=== PATIENT | female | born 1975 | race African-American/Black ===

== ENCOUNTER 2019-10-02 01:27 | Emergency (ER) | payer BC ==
[2019-10-02 01:45] VITALS: BP 125/82; PULSE 94; TEMP 98.1; BMI 24.6
[2019-10-02] MEDS ORDERED: FLUORESCEIN NA 1 EA STRIP OD ONE (02:07)
[2019-10-02] MEDS ORDERED: TETRACAINE 0.5% HCL 0.6ML DROPPER.BOTTLE OD ONE (02:07)
[2019-10-02] MEDS ORDERED: TETRACAINE 0.5% OPHTH SOLN 2 ML BOTTLE ONE (02:10)
[2019-10-02] MEDS ORDERED: FLUORESCEIN NA 1 EA STRIP ONE ×2 (02:10→02:23)
[2019-10-02] MEDS ORDERED: GENTAMICIN SULFATE 0.3% OPHTHALMIC (EYE DROPS) 5ML BOTTLE OS ONE (02:30)
--- NOTE | 2019-10-02 02:31 | PDOC ---
Attending Attestation - Resident Resident Name: Shelia Rawls - ED Attending Attestation I have performed the following: I have examined & evaluated the patient, The case was reviewed & discussed with the resident, I agree w/resident's findings & plan - HPI HPI: 10/02/19 04:04 FB sensation in the left eye - Physicial Exam PE: 10/02/19 04:04 Pt has fluorescine exam that shows a FB around 6 o'clock on the left cornea. Vision as reported on the resident exam - Medical Decision Making 10/02/19 04:05 Home with gentamicin drops QID x 5 days; follow with ophtho 10/02/19 04:06 FB was removed with a tuberculin needle
--- NOTE | 2019-10-02 02:35 | PDOC ---
History of Present Illness <Ashley Ayon - Last Filed: 10/02/19 02:47> - General History Source: Patient - History of Present Illness Initial Comments: 10/02/19 02:30 44 yo F presenting for foreign body sensation in L eye that has been since Thursday night around 8pm. pt states she does not know what the foreign body is. she feels it moving in her eye and states the sensation is worse when she closes her eyes. pt states that her vision is not affected. denies blurred vision. <Shelia Rawls - Last Filed: 10/02/19 03:10> - General Chief Complaint: Foreign Body (FB) Stated Complaint: EYE PROBLEM Time Seen by Provider: 10/02/19 02:12 Past History <Ashley Ayon - Last Filed: 10/02/19 02:47> - Past Medical History COPD: No - Immunization History Immunization Up to Date: Yes - Psycho Social/Smoking Cessation Hx Smoking History: Never smoked Have you smoked in the past 12 months: No Hx Alcohol Use: No Drug/Substance Use Hx: No Substance Use Type: None <Shelia Rawls - Last Filed: 10/02/19 03:10> - Past Medical History Allergies/Adverse Reactions: Allergies Allergy/AdvReac Type Severity Reaction Status Date / Time No Known Drug Allergies Allergy Verified 10/02/19 01:45 shrimp Allergy Verified 10/02/19 01:45 Home Medications: Ambulatory Orders NK [No Known Home Medication] 10/02/19 Review of Systems - Review of Systems HEENTM: Yes: Eye Pain, Tearing. No: Blurred Vision, Recent change in vision, Double Vision <Shelia Rawls - Last Filed: 10/02/19 03:10> *Physical Exam - Vital Signs Last Vital Signs Temp Pulse Resp BP Pulse Ox 98.1 F 94 H 20 125/82 100 10/02/19 01:40 10/02/19 01:40 10/02/19 01:40 10/02/19 01:40 10/02/19 01:40 <Ashley Ayon - Last Filed: 10/02/19 02:47> - Vital Signs Last Vital Signs Temp Pulse Resp BP Pulse Ox 98.1 F 94 H 20 125/82 100 10/02/19 01:40 10/02/19 01:40 10/02/19 01:40 10/02/19 01:40 10/02/19 01:40 - Physical Exam General Appearance: Yes: Nourished, Appropriately Dressed. No: Apparent Distress HEENT: positive: EOMI, DANNY, Normal Voice, Other (L eyelid swelling, foreign object 6oclock L eye). negative: Photophobia Respiratory/Chest: positive: Lungs Clear, Normal Breath Sounds. negative: Respiratory Distress, Accessory Muscle Use Cardiovascular: positive: Regular Rhythm, Regular Rate, S1, S2 Musculoskeletal: positive: Normal Inspection Extremity: positive: Normal Capillary Refill, Normal Inspection Integumentary: positive: Normal Color, Dry, Warm Neurologic: positive: Fully Oriented <Shelia Rawls - Last Filed: 10/02/19 03:10> ED Treatment Course - Medications Given in the ED: ED Medications Discontinued Medications Generic Name Dose Route Start Last Admin Trade Name Freq PRN Reason Stop Dose Admin Fluorescein Sodium 1 ea 10/02/19 02:07 10/02/19 02:24 Fluorets - OD 10/02/19 02:08 1 ea ONCE ONE Administration Gentamicin Sulfate 1 drop 10/02/19 02:30 10/02/19 02:40 Gentamicin 0.3% Eye Drops - OS 10/02/19 02:31 1 drop ONCE ONE Administration Tetracaine HCl 1 drop 10/02/19 02:07 10/02/19 02:24 Tetravisc 0.5% Eye Drops - OD 10/02/19 02:08 1 drop ONCE ONE Administration <Ashley Ayon - Last Filed: 10/02/19 02:47> - Medications Given in the ED: ED Medications Discontinued Medications Generic Name Dose Route Start Last Admin Trade Name Freq PRN Reason Stop Dose Admin Fluorescein Sodium 1 ea 10/02/19 02:07 10/02/19 02:24 Fluorets - OD 10/02/19 02:08 1 ea ONCE ONE Administration Tetracaine HCl 1 drop 10/02/19 02:07 10/02/19 02:24 Tetravisc 0.5% Eye Drops - OD 10/02/19 02:08 1 drop ONCE ONE Administration <Shelia Rawls - Last Filed: 10/02/19 03:10> Medical Decision Making - Medical Decision Making 10/02/19 02:36 44 yo F presenting for foreign body in L eye 10/02/19 02:37 -exam w/ fluorescein and shows foreign body- removed w/ qtip -will reassess -dc gentamycin ointment. should f/u w/ ophthalmology 10/02/19 02:38 10/02/19 03:08 vision testing assessed with glasses. R eye 20/20, L eye 20/15. pt states her eye is feeling better <Shelia Rawls - Last Filed: 10/02/19 03:10> Discharge - Discharge Information Problems reviewed: Yes <Ashley Ayon - Last Filed: 10/02/19 02:47> <Shelia Rawls - Last Filed: 10/02/19 03:10> - Discharge Information Clinical Impression/Diagnosis: Eye foreign body Condition: Improved Disposition: HOME - Follow up/Referral Referrals: Mack Hudson MD [Non Staff, Medical] - Taco Hudson MD [Non Staff, Medical] - Janiya Álvarez MD [Staff Physician] - - Patient Discharge Instructions Patient Printed Discharge Instructions: How to Get a Foreign Body Out of Your Eye, DI for Foreign Body in the Eye - Post Discharge Activity Work/Back to School Note: Back to Work
[2019-10-02] MEDS ORDERED: GENTAMICIN SULFATE 0.3% OPHTHALMIC (EYE DROPS) 5ML BOTTLE ONE (02:37)
== END 2019-10-02 03:01 | disposition home or self-care (01) ==
LOC: JER 01:27
PROC: 08C9XZZ Extirpation of Matter from Left Cornea, External Approach (ICD-10-PCS; principal; 2019-10-02)
PROC: 4A07X0Z Measurement of Visual Acuity, External Approach (ICD-10-PCS; 2019-10-02)
DX: T15.02XA Foreign body in cornea, left eye, initial encounter (principal); Z91.013 Allergy to seafood; X58.XXXA Exposure to other specified factors, initial encounter; Y93.89 Activity, other specified; Y92.038 Other place in apartment as the place of occurrence of the external cause; Y99.8 Other external cause status
CPT/HCPCS: 99281-25

== ENCOUNTER 2023-12-17 18:56 | Inpatient (IN) | payer BC ==
[2023-12-17] MEDS ORDERED: ACETAMINOPHEN INJECTION 100 ML IVPB ONE (20:31)
[2023-12-17] MEDS: ACETAMINOPHEN 1000 MG/100 ML BAG IVPB ONE (20:37)
[2023-12-17] MEDS: LACTATED RINGERS SOLUTION 1000 ML INFUS.BAG IV ONE (20:38)
[2023-12-17 20:57] LABS: BASO % 0.4 % (0-2.0); EOS % 0.7 % (0-4.5); HEMATOCRIT 32.5 % (32.4-45.2); HEMOGLOBIN 10.8 GM/dL (10.7-15.3); LYMPH % 20.8 % (8-40); MCH 25.6 pg (25.7-33.7); MCHC 33.3 g/dl (32.0-36.0); MEAN CELL VOLUME 77.1 fl (80-96); MEAN PLT VOLUME 7.7 fl (7.5-11.1); MONO % 7.3 % (3.8-10.2); NEUT % 70.8 % (42.8-82.8); PLATELET COUNT 270 10^3/uL (134-434); RBC 4.22 M/mm3 (3.60-5.2); RDW 13.3 % (11.6-15.6)
[2023-12-17 20:58] LABS: POTASSIUM 3.5 mmol/L (3.5-5.1)
[2023-12-17 21:00] LABS: CALCIUM 8.1 mg/dL (8.5-10.1)
[2023-12-17 21:01] LABS: ALBUMIN 2.2 g/dl (3.4-5.0); MAGNESIUM 1.8 mg/dL (1.8-2.4)
[2023-12-17 21:01] LABS: HCG,QUALITATIVE URINE Negative
[2023-12-17 21:02] LABS: EPI CELLS 13 /uL (0-25.1); HYALINE CASTS 0 /uL (0-3.1); URINE APPEARANCE CLEAR; URINE BACTERIA 531 /uL (0-1359); URINE BILIRUBIN NEGATIVE (NEGATIVE); URINE COLOR YELLOW; URINE GLUCOSE (UA) NEGATIVE (NEGATIVE); URINE KETONE NEGATIVE (NEGATIVE); URINE LEUK ESTERASE NEGATIVE (NEGATIVE); URINE NITRITE NEGATIVE (NEGATIVE); URINE PROTEIN 4+ (NEGATIVE); URINE RBC 28 /uL (0-23.9); URINE UROBILINOGEN 0.2 mg/dL (0.2-1.0); URINE WBC 17 /uL (0-25.8)
[2023-12-17 21:03] LABS: INR 1.06 (0.83-1.09); PROTHROMBIN TIME (PATIENT) 12.3 SEC (9.7-13.0)
[2023-12-17 21:04] LABS: CREATININE 0.6 mg/dL (0.55-1.3)
[2023-12-17 21:06] LABS: ACTIVATED PTT 28.1 SECONDS (25.2-36.5); BILIRUBIN,TOTAL 0.2 mg/dL (0.2-1); TOT PROT 6.5 g/dl (6.4-8.2)
[2023-12-17] MEDS ORDERED: CEFTRIAXONE 1 GM/50 ML BAG ONE (22:39)
[2023-12-17] MEDS: CEFTRIAXONE 1,000 MG in DEXTROSE 5%-WATER - 50 ML IVPB ONE (22:45)
[2023-12-17] MEDS ORDERED: HEPARIN NA (PORCINE) 5,000 UNITS/ML 1ML VIAL IVPUSH PRN (22:50)
[2023-12-18] MEDS ORDERED: HEPARIN NA (PORCINE) 5,000 UNITS/ML 1ML VIAL ONE (00:02)
[2023-12-18] MEDS: HEPARIN NA (PORCINE) 5,000 UNITS/ML 1ML VIAL IVPUSH ONE (00:11)
[2023-12-18] MEDS ORDERED: HEPARIN INFUSION - 25,000 UNITS/500 ML INFUS.BAG IVPB ONE (00:12)
[2023-12-18] MEDS: HEPARIN INFUSION - 25,000 UNITS/500 ML INFUS.BAG IVPB SCH (00:17)
[2023-12-18] MEDS: SODIUM CHLORIDE 1,000 ML IV SCH (02:10)
[2023-12-18 07:16] LABS: BASO % 0.6 % (0-2.0); EOS % 0.6 % (0-4.5); LYMPH % 23.7 % (8-40); MONO % 6.8 % (3.8-10.2); NEUT % 68.3 % (42.8-82.8)
[2023-12-18] MEDS ORDERED: ACETAMINOPHEN 325 MG TABLET (FP) ONE ×2 (07:22→17:36)
[2023-12-18] MEDS: ACETAMINOPHEN 325 MG TABLET (FP) PO PRN (07:26)
[2023-12-18 07:39] LABS: CALCIUM 8.2 mg/dL (8.5-10.1)
[2023-12-18 07:40] LABS: ALBUMIN 2.1 g/dl (3.4-5.0); BLOOD UREA NITROGEN 4.9 mg/dL (7-18); CHOLESTEROL 204 mg/dL (50-200); MAGNESIUM 1.7 mg/dL (1.8-2.4)
[2023-12-18 07:41] LABS: LDL CHOLESTEROL (ONLY SJRH) 120 mg/dL (5-100)
[2023-12-18 07:43] LABS: CREATININE 0.5 mg/dL (0.55-1.3); HDL CHOLESTEROL 69 mg/dL (40-60); PHOSPHOROUS 3.1 mg/dL (2.5-4.9)
[2023-12-18 07:44] LABS: BILIRUBIN,TOTAL 0.2 mg/dL (0.2-1)
[2023-12-18 09:25] LABS: HEMATOCRIT 32.8 % (32.4-45.2); HEMOGLOBIN 10.9 GM/dL (10.7-15.3); MEAN CELL VOLUME 77.4 fl (80-96); RBC 4.24 M/mm3 (3.60-5.2); WHITE BLOOD COUNT 6.9 K/mm3 (4.0-10.0)
[2023-12-18 09:26] LABS: MCH 25.6 pg (25.7-33.7); MEAN PLT VOLUME 8.3 fl (7.5-11.1); PLATELET COUNT 262 10^3/uL (134-434); RDW 13.4 % (11.6-15.6)
[2023-12-18] MEDS ORDERED: POLYETHYLENE GLYCOL (HEALTHYLAX) 3350 17 GM PACKET ONE (16:12)
[2023-12-18] MEDS: POLYETHYLENE GLYCOL (HEALTHYLAX) 3350 17 GM PACKET PO SCH (16:24)
[2023-12-18 17:32] LABS: EPI CELLS 4 /uL (0-25.1); HYALINE CASTS 0 /uL (0-3.1); URINE APPEARANCE CLEAR; URINE BACTERIA 51 /uL (0-1359); URINE BILIRUBIN NEGATIVE (NEGATIVE); URINE COLOR YELLOW; URINE GLUCOSE (UA) NEGATIVE (NEGATIVE); URINE KETONE NEGATIVE (NEGATIVE); URINE LEUK ESTERASE NEGATIVE (NEGATIVE); URINE NITRITE NEGATIVE (NEGATIVE); URINE PROTEIN 3+ (NEGATIVE); URINE RBC 16 /uL (0-23.9); URINE WBC 3 /uL (0-25.8)
[2023-12-18] MEDS ORDERED: MAGNESIUM SULFATE IN WATER 2 GM/50 ML IVPB IVPB ONE ×2 (17:36→17:57)
[2023-12-18] MEDS: MAGNESIUM SULF 50% (8.12 MEQ/2 ML-1 GM VIAL) IVPB ONE (17:42)
[2023-12-18] MEDS ORDERED: POTASSIUM CHLORIDE ORAL LIQUID 20 MEQ/15 ML ONE (18:28)
[2023-12-18] MEDS ORDERED: MELATONIN 5 MG TABLETS PO PRN (18:29)
[2023-12-18] MEDS: POTASSIUM CHLORIDE ORAL LIQUID 20 MEQ/15 ML PO ONE (18:36)
[2023-12-18] MEDS: ENOXAPARIN NA (PORCINE) 80 MG/0.8 ML DISP.SYRIN SQ SCH (22:31)
[2023-12-19 03:42] VITALS: BMI 26.6
[2023-12-19 08:35] LABS: BASO % 0.2 % (0-2.0); EOS % 0.6 % (0-4.5); HEMATOCRIT 32.3 % (32.4-45.2); HEMOGLOBIN 10.6 GM/dL (10.7-15.3); LYMPH % 17.4 % (8-40); MCH 25.5 pg (25.7-33.7); MCHC 32.9 g/dl (32.0-36.0); MEAN CELL VOLUME 77.5 fl (80-96); MEAN PLT VOLUME 7.2 fl (7.5-11.1); MONO % 6.3 % (3.8-10.2); NEUT % 75.5 % (42.8-82.8); PLATELET COUNT 282 10^3/uL (134-434); RBC 4.17 M/mm3 (3.60-5.2); RDW 13.3 % (11.6-15.6)
[2023-12-19 08:54] LABS: POTASSIUM 3.6 mmol/L (3.5-5.1)
[2023-12-19 08:59] LABS: ALBUMIN 1.9 g/dl (3.4-5.0); BLOOD UREA NITROGEN 4.6 mg/dL (7-18); MAGNESIUM 1.9 mg/dL (1.8-2.4)
[2023-12-19 09:02] LABS: CREATININE 0.5 mg/dL (0.55-1.3)
[2023-12-19 09:04] LABS: BILIRUBIN,TOTAL 0.3 mg/dL (0.2-1); TOT PROT 5.9 g/dl (6.4-8.2)
[2023-12-19] MEDS: CEFTRIAXONE 1 GM in DEXTROSE 5%-WATER - 50 ML IVPB SCH (13:42)
[2023-12-19 18:26] LABS: EPI CELLS 4 /uL (0-25.1); HYALINE CASTS 0 /uL (0-3.1); URINE APPEARANCE CLEAR; URINE BACTERIA 1 /uL (0-1359); URINE BILIRUBIN NEGATIVE (NEGATIVE); URINE COLOR YELLOW; URINE GLUCOSE (UA) NEGATIVE (NEGATIVE); URINE KETONE NEGATIVE (NEGATIVE); URINE LEUK ESTERASE NEGATIVE (NEGATIVE); URINE NITRITE NEGATIVE (NEGATIVE); URINE PROTEIN 3+ (NEGATIVE); URINE RBC 11 /uL (0-23.9); URINE UROBILINOGEN 0.2 mg/dL (0.2-1.0); URINE WBC 3 /uL (0-25.8)
[2023-12-20 09:19] LABS: HEMATOCRIT 31.7 % (32.4-45.2); HEMOGLOBIN 10.6 GM/dL (10.7-15.3); MCH 26.1 pg (25.7-33.7); MCHC 33.5 g/dl (32.0-36.0); MEAN CELL VOLUME 77.7 fl (80-96); MEAN PLT VOLUME 7.8 fl (7.5-11.1); PLATELET COUNT 293 10^3/uL (134-434); RBC 4.07 M/mm3 (3.60-5.2); RDW 13.2 % (11.6-15.6); WHITE BLOOD COUNT 4.8 K/mm3 (4.0-10.0)
[2023-12-21 07:55] LABS: POTASSIUM 3.3 mmol/L (3.5-5.1)
[2023-12-21 07:56] LABS: HEMATOCRIT 34.5 % (32.4-45.2); HEMOGLOBIN 11.6 GM/dL (10.7-15.3); MCH 25.9 pg (25.7-33.7); MCHC 33.5 g/dl (32.0-36.0); MEAN CELL VOLUME 77.3 fl (80-96); MEAN PLT VOLUME 7.3 fl (7.5-11.1); PLATELET COUNT 341 10^3/uL (134-434); RBC 4.46 M/mm3 (3.60-5.2); RDW 13.4 % (11.6-15.6); WHITE BLOOD COUNT 4.5 K/mm3 (4.0-10.0)
[2023-12-21 08:01] LABS: CALCIUM 8.2 mg/dL (8.5-10.1)
[2023-12-21 08:02] LABS: BLOOD UREA NITROGEN 5.2 mg/dL (7-18)
[2023-12-21 08:05] LABS: CREATININE 0.6 mg/dL (0.55-1.3)
[2023-12-21] MEDS: POTASSIUM CHLORIDE ORAL LIQUID 20 MEQ/15 ML PO ONE (11:53)
[2023-12-21] MEDS: POTASSIUM CHLORIDE TABS 20 MEQ TABLET.ER (FP) PO ONE (13:28)
[2023-12-22 08:39] LABS: HEMATOCRIT 32.7 % (32.4-45.2); HEMOGLOBIN 10.8 GM/dL (10.7-15.3); MCH 25.6 pg (25.7-33.7); MCHC 33.1 g/dl (32.0-36.0); MEAN CELL VOLUME 77.5 fl (80-96); MEAN PLT VOLUME 7.4 fl (7.5-11.1); PLATELET COUNT 290 10^3/uL (134-434); RBC 4.22 M/mm3 (3.60-5.2); RDW 13.1 % (11.6-15.6); WHITE BLOOD COUNT 3.8 K/mm3 (4.0-10.0)
[2023-12-22 08:57] LABS: POTASSIUM 3.9 mmol/L (3.5-5.1)
[2023-12-22 09:00] LABS: CALCIUM 8.4 mg/dL (8.5-10.1)
[2023-12-22 09:01] LABS: BLOOD UREA NITROGEN 5.3 mg/dL (7-18); MAGNESIUM 1.7 mg/dL (1.8-2.4)
[2023-12-22 09:04] LABS: CREATININE 0.5 mg/dL (0.55-1.3)
[2023-12-22 09:05] LABS: BILIRUBIN,TOTAL 0.3 mg/dL (0.2-1)
[2023-12-22] MEDS ORDERED: MIDAZOLAM HCL 2 MG/2 ML SINGLE DOSE VIAL ONE (09:43)
[2023-12-22] MEDS: MAGNESIUM 1GM/D5W - 1 GM/100 ML IVPB IVPB ONE (10:48)
[2023-12-22] MEDS: FENTANYL CITRATE/PF 50 MCG/ML VIAL IVPUSH ONE ×2 (10:59→11:10)
[2023-12-22] MEDS: MIDAZOLAM HCL 2 MG/2 ML SINGLE DOSE VIAL IVPUSH ONE ×2 (10:59→11:10)
[2023-12-22] MEDS: SODIUM CHLORIDE 500 ML IV ONE (12:25)
[2023-12-22] MEDS: MAGNESIUM OXIDE 400 MG TABLET (FP) PO ONE (16:49)
[2023-12-22 20:21] LABS: INR 1.07 (0.83-1.09); PROTHROMBIN TIME (PATIENT) 12.4 SEC (9.7-13.0)
[2023-12-22 21:06] LABS: ANTIGLOMERULAR BASEMENT MEN.AB 0.2 units (0.0-0.9)
[2023-12-23 08:20] LABS: POTASSIUM 4.2 mmol/L (3.5-5.1)
[2023-12-23 08:24] LABS: BLOOD UREA NITROGEN 5.1 mg/dL (7-18); CALCIUM 8.1 mg/dL (8.5-10.1); MAGNESIUM 1.9 mg/dL (1.8-2.4)
[2023-12-23 08:27] LABS: CREATININE 0.6 mg/dL (0.55-1.3)
[2023-12-23 08:29] LABS: BASO % 0.2 % (0-2.0); BILIRUBIN,TOTAL 0.2 mg/dL (0.2-1); EOS % 1.2 % (0-4.5); HEMATOCRIT 32.1 % (32.4-45.2); LYMPH % 27.4 % (8-40); MCH 26.2 pg (25.7-33.7); MCHC 34.2 g/dl (32.0-36.0); MEAN CELL VOLUME 76.6 fl (80-96); MEAN PLT VOLUME 7.5 fl (7.5-11.1); MONO % 10.2 % (3.8-10.2); PLATELET COUNT 279 10^3/uL (134-434); RBC 4.19 M/mm3 (3.60-5.2); RDW 13.2 % (11.6-15.6); TOT PROT 5.9 g/dl (6.4-8.2); WHITE BLOOD COUNT 4.8 K/mm3 (4.0-10.0)
[2023-12-23] MEDS: LISINOPRIL 5 MG TABLET PO SCH (12:46)
[2023-12-23 16:08] LABS: ATYPICAL pANCA <1:20 titer (Neg:<1:20); C-ANCA <1:20 titer (Neg:<1:20)
[2023-12-23] MEDS: POLYETHYLENE GLYCOL (HEALTHYLAX) 3350 17 GM PACKET PO ONE (23:03)
[2023-12-24 09:56] LABS: BASO % 0.3 % (0-2.0); EOS % 1.2 % (0-4.5); HEMATOCRIT 34.9 % (32.4-45.2); HEMOGLOBIN 11.4 GM/dL (10.7-15.3); LYMPH % 28.4 % (8-40); MCH 25.4 pg (25.7-33.7); MCHC 32.6 g/dl (32.0-36.0); MEAN CELL VOLUME 77.8 fl (80-96); MEAN PLT VOLUME 7.3 fl (7.5-11.1); MONO % 6.5 % (3.8-10.2); NEUT % 63.6 % (42.8-82.8); PLATELET COUNT 309 10^3/uL (134-434); RBC 4.49 M/mm3 (3.60-5.2); RDW 13.3 % (11.6-15.6)
[2023-12-24 10:14] LABS: POTASSIUM 3.8 mmol/L (3.5-5.1)
[2023-12-24] MEDS: SENNOSIDES 8.6MG TABLET (FP) PO ONE (10:28)
[2023-12-24 10:49] LABS: ALBUMIN 2.2 g/dl (3.4-5.0); CALCIUM 8.3 mg/dL (8.5-10.1)
[2023-12-24 10:50] LABS: BLOOD UREA NITROGEN 7.6 mg/dL (7-18)
[2023-12-24 10:54] LABS: BILIRUBIN,TOTAL 0.4 mg/dL (0.2-1); CREATININE 0.6 mg/dL (0.55-1.3); TOT PROT 6.4 g/dl (6.4-8.2)
[2023-12-24 12:25] VITALS: BP 112/76; PULSE 98; RESP 18; TEMP 98.6
[2023-12-30 11:09] LABS: APTT 27.3 sec (.); B2-GLYCOPROTEIN IGA <10 SAU (.); B2-GLYCOPROTEIN IGG <10 SGU (.); B2-GLYCOPROTEIN IGM <10 SMU (.); CARDIOLIPIN AB IGA <10 APL (.); HEXAGONAL PHOSPHOLIPID NEUTRAL 6 sec (.)
== END 2023-12-24 14:44 | disposition home or self-care (01) | DRG 699 ==
LOC: JER 18:56 → JERBED 22:22 → J7W 12-18 20:35
PROVIDERS: ADMIT Internal Medicine; ATTEND Nurse Practitioner Acute Care
PROC: 0TB03ZX Excision of Right Kidney, Percutaneous Approach, Diagnostic (ICD-10-PCS; principal; 2023-12-22)
DX: I82.3 Embolism and thrombosis of renal vein (principal); N04.9 Nephrotic syndrome with unspecified morphologic changes; N13.6 Pyonephrosis; D25.9 Leiomyoma of uterus, unspecified; E88.09 Other disorders of plasma-protein metabolism, not elsewhere classified; R80.9 Proteinuria, unspecified; N18.9 Chronic kidney disease, unspecified; E78.5 Hyperlipidemia, unspecified
CPT/HCPCS: 36415; 50200; 74177-TC; 77012-TC; 80048; 80053; 80061; 81003; 81240; 82272; 82570; 83516; 83520; 83735; 84100; 84155; 84156; 84165; 84703; 85025; 85027; 85300; 85303; 85306; 85597; 85610; 85730; 86038; 86146; 86147; 86160; 86225; 86256; 87086; 88300-TC; 88329; 93005; 93010; 99285-25; J0131; J1644

== ENCOUNTER 2024-01-27 17:34 | Emergency (ER) | payer BC ==
[2024-01-27 17:55] VITALS: BMI 28.1
[2024-01-27] MEDS ORDERED: ACETAMINOPHEN INJECTION 100 ML IVPB ONE (20:17)
[2024-01-27] MEDS: SODIUM CHLORIDE 0.9% 500 ML INFUS.BAG IV ONE (20:34)
[2024-01-27] MEDS: ACETAMINOPHEN 1000 MG/100 ML BAG IVPB ONE (20:39)
[2024-01-27 20:45] LABS: VENOUS BASE EXCESS 2.3 mmol/L (-2-2); VENOUS O2 SATURATION 92.8 % (70-80); VENOUS PCO2 35.7 mmHg (38-52); VENOUS PH 7.475 (7.310-7.410)
[2024-01-27 20:49] LABS: BASO % 0.5 % (0-2.0); EOS % 0.1 % (0-4.5); HEMATOCRIT 30.6 % (32.4-45.2); HEMOGLOBIN 10.4 GM/dL (10.7-15.3); LYMPH % 14.8 % (8-40); MCHC 33.9 g/dl (32.0-36.0); MEAN CELL VOLUME 76.7 fl (80-96); MEAN PLT VOLUME 7.9 fl (7.5-11.1); MONO % 4.4 % (3.8-10.2); NEUT % 80.2 % (42.8-82.8); PLATELET COUNT 342 10^3/uL (134-434); RBC 3.99 M/mm3 (3.60-5.2); RDW 13.7 % (11.6-15.6); WHITE BLOOD COUNT 10.5 K/mm3 (4.0-10.0)
[2024-01-27 20:55] LABS: INR 1.17 (0.83-1.09); PROTHROMBIN TIME (PATIENT) 13.6 SEC (9.7-13.0)
[2024-01-27 21:05] LABS: POTASSIUM 3.2 mmol/L (3.5-5.1)
[2024-01-27 21:07] LABS: CALCIUM 7.9 mg/dL (8.5-10.1)
[2024-01-27 21:08] LABS: ALBUMIN 1.9 g/dl (3.4-5.0); BLOOD UREA NITROGEN 4.3 mg/dL (7-18)
[2024-01-27 21:11] LABS: CREATININE 0.5 mg/dL (0.55-1.3)
[2024-01-27 21:12] LABS: BILIRUBIN,TOTAL 0.2 mg/dL (0.2-1); TOT PROT 6.1 g/dl (6.4-8.2)
[2024-01-27 21:13] LABS: ACTIVATED PTT 29.7 SECONDS (25.2-36.5)
[2024-01-27 21:45] LABS: EPI CELLS 11 /uL (0-25.1); HYALINE CASTS 1 /uL (0-3.1); URINE APPEARANCE CLEAR; URINE BACTERIA 184 /uL (0-1359); URINE BILIRUBIN NEGATIVE (NEGATIVE); URINE COLOR YELLOW; URINE GLUCOSE (UA) NEGATIVE (NEGATIVE); URINE KETONE NEGATIVE (NEGATIVE); URINE LEUK ESTERASE NEGATIVE (NEGATIVE); URINE NITRITE NEGATIVE (NEGATIVE); URINE PROTEIN 4+ (NEGATIVE); URINE RBC 17 /uL (0-23.9); URINE UROBILINOGEN 0.2 mg/dL (0.2-1.0); URINE WBC 8 /uL (0-25.8)
[2024-01-27] MEDS: IBUPROFEN 600 MG TABLET (FP) PO ONE (23:24)
[2024-01-27] MEDS ORDERED: KETOROLAC TROMETHAMINE 15 MG/ML VIAL ONE (23:55)
[2024-01-27] MEDS: KETOROLAC TROMETHAMINE 15 MG/ML VIAL IVPUSH ONE (23:59)
[2024-01-28 00:58] VITALS: BP 114/71; PULSE 89; RESP 16; TEMP 98.4
== END 2024-01-28 01:22 | disposition home or self-care (01) ==
LOC: JER 17:34
PROC: 3E033NZ Introduction of Analgesics, Hypnotics, Sedatives into Peripheral Vein, Percutaneous Approach (ICD-10-PCS; principal; 2024-01-27)
PROC: 3E0333Z Introduction of Anti-inflammatory into Peripheral Vein, Percutaneous Approach (ICD-10-PCS; 2024-01-27)
DX: R10.31 Right lower quadrant pain (principal); R50.9 Fever, unspecified; R39.15 Urgency of urination; R05.9 Cough, unspecified; D25.9 Leiomyoma of uterus, unspecified; Z20.822 Contact with and (suspected) exposure to COVID-19
CPT/HCPCS: 0241U-QW; 36415; 71046-TC-FY; 74177-TC; 80053; 81003; 82803; 83605; 84484; 84703; 85025; 85610; 85730; 86850; 86900; 86901; 87040; 87086; 93005; 93010; 99285-25; J0131; Q9967

== ENCOUNTER 2024-04-12 12:38 | Inpatient (IN) | payer BC ==
[2024-04-12] MEDS ORDERED: ACETAMINOPHEN INJECTION 100 ML IVPB ONE (13:34)
[2024-04-12] MEDS ORDERED: METOCLOPRAMIDE HCL INJECTION 10 MG/2 ML VIAL ONE (13:34)
[2024-04-12] MEDS: SODIUM CHLORIDE 0.9% 500 ML INFUS.BAG IV ONE (13:46)
[2024-04-12] MEDS: ACETAMINOPHEN 1000 MG/100 ML BAG IVPB ONE (13:46)
[2024-04-12] MEDS: METOCLOPRAMIDE HCL INJECTION 10 MG/2 ML VIAL IVPB ONE (13:47)
[2024-04-12 13:49] LABS: BASO % 1.1 % (0-2.0); EOS % 0.4 % (0-4.5); HEMATOCRIT 35.1 % (32.4-45.2); HEMOGLOBIN 11.6 GM/dL (10.7-15.3); LYMPH % 30.5 % (8-40); MCH 25.2 pg (25.7-33.7); MCHC 33.1 g/dl (32.0-36.0); MEAN CELL VOLUME 76.1 fl (80-96); MEAN PLT VOLUME 7.7 fl (7.5-11.1); MONO % 5.1 % (3.8-10.2); NEUT % 62.9 % (42.8-82.8); PLATELET COUNT 317 10^3/uL (134-434); RBC 4.62 M/mm3 (3.60-5.2); RDW 15.1 % (11.6-15.6); WHITE BLOOD COUNT 5.6 K/mm3 (4.0-10.0)
[2024-04-12 13:59] LABS: EPI CELLS 11 /uL (0-25.1); HYALINE CASTS 0 /uL (0-3.1); PH,URINE 7.5 (5.0-8.0); URINE APPEARANCE CLEAR; URINE BACTERIA 414 /uL (0-1359); URINE BILIRUBIN NEGATIVE (NEGATIVE); URINE COLOR YELLOW; URINE GLUCOSE (UA) NEGATIVE (NEGATIVE); URINE KETONE NEGATIVE (NEGATIVE); URINE LEUK ESTERASE NEGATIVE (NEGATIVE); URINE NITRITE NEGATIVE (NEGATIVE); URINE PROTEIN 2+ (NEGATIVE); URINE RBC 27 /uL (0-23.9); URINE UROBILINOGEN 0.2 mg/dL (0.2-1.0); URINE WBC 8 /uL (0-25.8)
[2024-04-12 14:02] LABS: INR 1.36 (0.83-1.09); PROTHROMBIN TIME (PATIENT) 15.2 SEC (9.7-13.0)
[2024-04-12 14:04] LABS: ACTIVATED PTT 30.9 SECONDS (25.2-36.5)
[2024-04-12 14:10] LABS: ALBUMIN 2.5 g/dl (3.4-5.0); CALCIUM 8.5 mg/dL (8.5-10.1)
[2024-04-12 14:11] LABS: BLOOD UREA NITROGEN 6.8 mg/dL (7-18); MAGNESIUM 1.7 mg/dL (1.8-2.4)
[2024-04-12 14:13] LABS: CREATININE 0.5 mg/dL (0.55-1.3)
[2024-04-12 14:14] LABS: PHOSPHOROUS 2.9 mg/dL (2.5-4.9)
[2024-04-12 14:15] LABS: BILIRUBIN,TOTAL 0.2 mg/dL (0.2-1); TOT PROT 6.5 g/dl (6.4-8.2)
[2024-04-12] MEDS ORDERED: CLOPIDOGREL BISULFATE 75 MG TABLET (FP) ONE (17:07)
[2024-04-12] MEDS ORDERED: ASPIRIN 325 MG TABLET ONE (17:08)
[2024-04-12] MEDS: ASPIRIN 325 MG TABLET PO ONE (17:18)
[2024-04-12] MEDS: CLOPIDOGREL BISULFATE 75 MG TABLET (FP) PO ONE (17:18)
[2024-04-12 18:33] VITALS: BMI 25.2
[2024-04-13] MEDS: ACETAMINOPHEN 500 MG TABLET (FP) PO PRN (02:06)
[2024-04-13 08:19] LABS: INR 1.54 (0.83-1.09); PROTHROMBIN TIME (PATIENT) 17.2 SEC (9.7-13.0)
[2024-04-13 08:22] LABS: HEMATOCRIT 28.3 % (32.4-45.2); HEMOGLOBIN 9.7 GM/dL (10.7-15.3); MCH 25.9 pg (25.7-33.7); MCHC 34.3 g/dl (32.0-36.0); MEAN CELL VOLUME 75.6 fl (80-96); MEAN PLT VOLUME 7.7 fl (7.5-11.1); PLATELET COUNT 248 10^3/uL (134-434); RBC 3.74 M/mm3 (3.60-5.2); RDW 14.5 % (11.6-15.6); WHITE BLOOD COUNT 3.7 K/mm3 (4.0-10.0)
[2024-04-13 08:48] VITALS: PULSE 87
[2024-04-13 09:25] LABS: ANISOCYTOSIS 2+; MACROCYTOSIS 0
[2024-04-13] MEDS ORDERED: WARFARIN NA 5 MG TABLET PO SCH (10:00)
[2024-04-13] MEDS ORDERED: LISINOPRIL 20 MG TABLET PO SCH (10:00)
[2024-04-13] MEDS ORDERED: WARFARIN NA 2 MG TABLET PO SCH (10:00)
[2024-04-13 10:31] LABS: BLOOD UREA NITROGEN 6.1 mg/dL (7-18); CALCIUM 7.7 mg/dL (8.5-10.1); CREATININE 0.4 mg/dL (0.55-1.3); POTASSIUM 3.5 mmol/L (3.5-5.1)
[2024-04-13] MEDS ORDERED: MAGNESIUM SULF 50% (8.12 MEQ/2 ML-1 GM VIAL) IVPB ONE (12:28)
[2024-04-13 12:41] LABS: HEMOGLOBIN 10.9 GM/dL (10.7-15.3); MCH 25.2 pg (25.7-33.7); MEAN CELL VOLUME 76.4 fl (80-96); MEAN PLT VOLUME 7.7 fl (7.5-11.1); PLATELET COUNT 298 10^3/uL (134-434); RBC 4.32 M/mm3 (3.60-5.2); RDW 14.6 % (11.6-15.6); WHITE BLOOD COUNT 3.6 K/mm3 (4.0-10.0)
[2024-04-13] MEDS: MAGNESIUM SULF 50% (8.12 MEQ/2 ML-1 GM VIAL) IVPB ONE (13:07)
[2024-04-13 15:02] VITALS: BP 119/85; RESP 18; TEMP 98.4
[2024-04-13] MEDS ORDERED: WARFARIN NA 10 MG TABLET PO SCH (18:00)
[2024-04-13] MEDS ORDERED: ATORVASTATIN CA 80 MG TABLET (FP) PO SCH (22:00)
== END 2024-04-13 15:36 | disposition home or self-care (01) | DRG 65 ==
LOC: JER 12:38 → JERBED 16:34 → J4W 18:17
PROVIDERS: ADMIT Internal Medicine; ATTEND Internal Medicine
DX: I63.89 Other cerebral infarction (principal); I82.3 Embolism and thrombosis of renal vein; N04.9 Nephrotic syndrome with unspecified morphologic changes; G44.209 Tension-type headache, unspecified, not intractable; R79.1 Abnormal coagulation profile; I10 Essential (primary) hypertension; D25.9 Leiomyoma of uterus, unspecified; N28.9 Disorder of kidney and ureter, unspecified
CPT/HCPCS: 0241U-QW; 36415; 70450-TC; 70496-TC; 70498-TC; 70551-TC; 80048; 80053; 80061; 81003; 83036; 83735; 84100; 84703; 85025; 85027; 85610; 85730; 86850; 86900; 86901; 87086; 93005; 93010; 93306-TC; 97116-GP; 97161-GP; 99285-25; J0131; Q9967